=== PATIENT | male | born 1945 | race Caucasian/White ===

== ENCOUNTER → 2022-07-16 | Day surgery (SDC) | payer OTHER ==
[~2022-07-16] VITALS: Ht 172.7 cm; Wt 68.9 kg
[~2022-07-16] MED LIST: ASPIRIN81 MG PO; CERTAGEN1 EACH PO; COMTAN 200MG T200 MG PO; CYCLOBENZAPRINE5 MG PO; FENOFIBRATE200 MG PO; JANUVIA100 MG PO; JANUVIA25 MG PO; LISINOPRIL20 MG PO; LOPRESSOR25 MG PO; METFORMIN HCL500 MG PO; METFORMIN HCL750 MG PO; NASONEX NAS120 PUFFS; NITROGLYCERIN0.4 MG SL; NORCO 5-325 TA1 EACH PO; ROBAXIN500 MG PO; SERTRALINE HCL25 MG PO; SINEMET 25-1001 EACH PO; STOOL SOFTENER100 MG PO; TRAMADOL HCL50 MG PO; ZESTORETIC 20-1 EACH PO; ZOCOR40 MG PO
[2022-07-16 08:42] LABS: HCT 22.5 % (42.0-52.0); HGB 7.4 g/dl (13.2-18.0); MCH 32.6 pg (25.0-31.0); MCHC 32.9 g/dL (32.0-36.0); MCV 99.1 fL (78.0-100.0); RBC 2.27 M/uL (4.70-6.00); RDW 17.2 % (11.5-14.0)
[2022-07-16 08:54] LABS: PLT 45 K/uL (150-400); WBC 0.6 K/uL (4.0-10.5)
[2022-07-16 09:17] LABS: ALBUMIN 3.8 g/dL (3.4-5.0); BILIRUBIN - TOTAL 0.5 mg/dL (0.2-1.0); CREATININE 0.96 mg/dL (0.67-1.17); GLOBULIN (CALCULATION) 3.1 g/dL; POTASSIUM 4.4 mmol/L (3.5-5.1); TOTAL PROTEIN 6.9 g/dL (6.4-8.2)
== END | disposition home or self-care (01) ==
LOC: FAS 07:51
PROVIDERS: Surgery
DX: D61.818 Other pancytopenia (principal); E11.9 Type 2 diabetes mellitus without complications; G20 Parkinson's disease; D46.9 Myelodysplastic syndrome, unspecified
CPT/HCPCS: 36415; 80053; J1642; J2704